=== PATIENT | female | born 1935 | race Caucasian/White ===

== ENCOUNTER 2017-07-06 15:18 | Emergency (ER) | payer MEDICARE, BC ==
--- NOTE | 2017-07-06 15:39 | EDM.PDOC ---
ED HPI GENERAL MEDICAL PROBLEM - General Chief Complaint: Genitourinary Problem Stated Complaint: BLADDER INFECTION Time Seen by Provider: 07/06/17 15:25 Source of Information: Reports: Patient History Limitations: Reports: No Limitations - History of Present Illness INITIAL COMMENTS - FREE TEXT/NARRATIVE: 82 yo female with a pHx of frequent UTI's recently developed dysuria. She had some Bactrim DS left at home and took one dose this morning. Since then has developed gross hematuria. No fever or nausea. Called the clinic and was unable to get in. Here now out of concern. 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) - Related Data Allergies Allergy/AdvReac Type Severity Reaction Status Date / Time No Known Allergies Allergy Verified 10/27/15 21:45 Home Meds: Home Meds Gemfibrozil [Gemfibrozil] 600 mg PO DAILY 10/27/15 [History] Lisinopril/Hydrochlorothiazide [Lisinopril-Hctz 10-12.5 mg Tab] 1 tab PO DAILY 10/27/15 [History] Lovastatin [Lovastatin] 40 mg PO DAILY 10/27/15 [History] Omeprazole [Omeprazole] 20 mg PO DAILY 10/27/15 [History] Social & Family History - Tobacco Use Smoking Status *Q: Unknown Ever Smoked - Recreational Drug Use Recreational Drug Use: No ED ROS GENERAL - Review of Systems Review Of Systems: See Below Constitutional: Reports: No Symptoms GI/Abdominal: Reports: No Symptoms : Reports: Dysuria, Hematuria Musculoskeletal: Reports: No Symptoms Skin: Reports: No Symptoms ED EXAM, RENAL/ - Physical Exam Exam: See Below Exam Limited By: No Limitations General Appearance: Alert, WD/WN, No Apparent Distress GI/Abdominal: Normal Bowel Sounds, Soft, Non-Tender, No Distention Back Exam: No: CVA Tenderness (R), CVA Tenderness (L) Extremities: Normal Inspection, Normal Range of Motion, Non-Tender, No Pedal Edema Neurological: Alert, Oriented, CN II-XII Intact, Normal Cognition Psychiatric: Normal Affect, Normal Mood Skin Exam: Warm, Dry, Intact, Normal Color, No Rash Departure - Departure Time of Disposition: 15:39 Disposition: Home, Self-Care 01 Condition: Good Clinical Impression: Hemorrhagic cystitis - Discharge Information Referrals: Gilberto Pike MD [Primary Care Provider] - Care Plan Goals: Drink ample fluids. Stay on your current ATB. Recheck in the clinic before the weekend. Return for fever.
[2017-07-06 15:46] VITALS: BP 170/82
== END 2017-07-06 16:00 | disposition home or self-care (01) ==
LOC: FB.ED 15:18
DX: N30.91 Cystitis, unspecified with hematuria (principal); Z79.899 Other long term (current) drug therapy
CPT/HCPCS: 99282

== ENCOUNTER 2017-11-23 12:43 | Emergency (ER) | payer MEDICARE, BC ==
[2017-11-23] MEDS ORDERED: Sulfamethoxazole/Trimethoprim 800-160 MG Tab PO ONE (14:01)
[2017-11-23 14:24] VITALS: BP 147/64
--- NOTE | 2017-11-23 20:47 | ER ---
DATE SEEN: 11/23/2017 TIME SEEN: Noon. CHIEF COMPLAINT: Pelvic pain. HISTORY OF PRESENT ILLNESS: An 82-year-old female with pelvic pain for 2 days, associated with urgency of urination. No burning, but she does have some frequency. She is concerned about a urinary tract infection. REVIEW OF SYSTEMS: No GI symptoms. No fever. MEDICATIONS: Reviewed. ALLERGIES: No known allergies. PHYSICAL EXAMINATION: VITAL SIGNS: Blood pressure and temperature within reference range. CHEST: Clear. ABDOMEN: Soft and benign. LABORATORY DATA: Positive for UTI. IMPRESSION: Acute cystitis. PLAN: Bactrim DS 1 tablet b.i.d. for 5 days. /[id number] HERACLIO/JANEY
== END 2017-11-23 14:23 | disposition home or self-care (01) ==
LOC: FB.ED 12:43
DX: N30.00 Acute cystitis without hematuria (principal)
CPT/HCPCS: 81001; 87086; 87088; 99283; A9270; 87186

== ENCOUNTER 2018-12-19 16:09 | Observation (INO) | payer MEDICARE, BC ==
[2018-12-19] MEDS ORDERED: Ketorolac 30 MG/ML SDV IM STA (16:18)
--- NOTE | 2018-12-19 16:25 | EDM.PDOC ---
ED HPI GENERAL MEDICAL PROBLEM - General Stated Complaint: RIGHT ANKLE PAIN Time Seen by Provider: 12/19/18 16:09 Source of Information: Reports: Patient, Family History Limitations: Reports: No Limitations - History of Present Illness INITIAL COMMENTS - FREE TEXT/NARRATIVE: 83 y.o.w.f with H/O HTN came to the ed by EMS due to sudden onset of pain and swelling of her right calf and ankle, unable to ambulate due to pain. Pt did not fall. No N/V/D, no dizziness, no other acute medical issues at this time. BP 194/80 Pulse 64 RR 14 Pulse ox 100% on RA Temp 36.8 Onset Date: 12/19/18 Onset Time: 15:00 Duration: Hour(s):, Constant Location: Reports: Lower Extremity, Right Quality: Reports: Ache, Dull, Pressure, Throbbing Severity: Moderate Improves with: Reports: None Worsens with: Reports: None Context: Reports: Other right lower leg Pain Score (Numeric/FACES): 9 - Related Data Allergies Allergy/AdvReac Type Severity Reaction Status Date / Time No Known Allergies Allergy Verified 12/19/18 16:54 Home Meds: Home Meds Gemfibrozil 600 mg PO DAILY 10/27/15 [History] Lovastatin 40 mg PO DAILY 10/27/15 [History] Omeprazole 20 mg PO DAILY 10/27/15 [History] amLODIPine [Norvasc] 5 mg PO DAILY 07/06/17 [History] Aspirin [Ecotrin] 81 mg PO DAILY 11/23/17 [History] Losartan [Cozaar] 25 mg PO DAILY 11/23/17 [History] Past Medical History HEENT History: Reports: Hard of Hearing, Impaired Vision Cardiovascular History: Reports: High Cholesterol, Hypertension Gastrointestinal History: Reports: GERD Genitourinary History: Reports: Urinary Incontinence, UTI, Recurrent 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: Musculoskeletal History: Reports: Arthritis - Infectious Disease History Infectious Disease History: Reports: Chicken Pox, Measles, Mumps - Past Surgical History HEENT Surgical History: Reports: Cataract Surgery Cardiovascular Surgical History: Reports: None Female Surgical History: Reports: None Social & Family History - Family History Family Medical History: Noncontributory - Caffeine Use Caffeine Use: Reports: Coffee ED ROS GENERAL - Review of Systems Review Of Systems: See Below Constitutional: Reports: No Symptoms HEENT: Reports: No Symptoms Respiratory: Reports: No Symptoms Cardiovascular: Reports: No Symptoms Endocrine: Reports: No Symptoms GI/Abdominal: Reports: No Symptoms : Reports: No Symptoms Musculoskeletal: Reports: Leg Pain (right leg pain) Skin: Reports: No Symptoms Neurological: Reports: No Symptoms Psychiatric: Reports: No Symptoms Hematologic/Lymphatic: Reports: No Symptoms Immunologic: Reports: No Symptoms ED EXAM,LOWER BACK PAIN/INJURY - Physical Exam Exam: See Below Exam Limited By: Physical Impairment (right leg pain) General Appearance: Alert, WD/WN, Moderate Distress, Cachetic Eye Exam: Bilateral Eye: Normal Inspection Ears: Normal External Exam, Normal Canal Nose: Normal Inspection, Normal Mucosa, No Blood Throat/Mouth: Normal Inspection, Normal Lips, Normal Voice, No Airway Compromise Head: Atraumatic, Normocephalic Neck: Normal Inspection, Supple, Non-Tender, Full Range of Motion Respiratory/Chest: No Respiratory Distress, Lungs Clear, Normal Breath Sounds, No Accessory Muscle Use, Chest Non-Tender Cardiovascular: Normal Peripheral Pulses, Regular Rate, Rhythm, No Edema, No Murmur, No Rub GI/Abdominal: Normal Bowel Sounds, Soft, Non-Tender, No Organomegaly, No Abnormal Bruit, No Mass, Pelvis Stable (Female) Exam: Deferred Rectal (Female) Exam: Deferred Back Exam: Normal Inspection, Full Range of Motion Extremities: Normal Inspection, Normal Range of Motion, Non-Tender, No Pedal Edema, Normal Capillary Refill Neurological: Alert, Normal Mood/Affect, Abnormal Gait (due to right lower leg pain) Psychiatric: Normal Affect, Normal Mood Skin Exam: Warm, Dry, Intact, Normal Color, No Rash Lymphatic: No Adenopathy Course - Vital Signs Text/Narrative:: 83 y.o.w.f with H/O HTN came to the ed by EMS due to sudden onset of pain and swelling of her right calf and ankle, unable to ambulate due to pain. Pt did not fall. No N/V/D, no dizziness, no other acute medical issues at this time. BP 194/80 Pulse 64 RR 14 Pulse ox 100% on RA Temp 36.8 PE: Cachectic 83 y.o.w.f with severe right lower extr. pain, unable to ambulate. Labs: CBC nl BMP pos for Na 132m Cl 98 BUN/CR ratio is elevated. Imaging: right T/P, Ankle: Ostearthritis, U/S doppler: Not available, scheduled for Thursday morning Impression: Right leg swelling. osteoarthritis DDX: Gout, DVT, varicosis Tx: Toradol: no improvement. Colchicine o.6 mg: Helped pain. Lovenox (1x5) SQ for presumed DVT. Clonidine 6.16 pm Consultation: Dr. Contreras, Hospitalist: Accepted admission for obs Plan: Admit for obs, Doppler US scheduled for AM Last Recorded V/S: Last Vital Signs Temp 36.8 C 12/20/18 00:00 Pulse 56 L 12/20/18 00:00 Resp 16 12/20/18 00:00 BP 110/59 L 12/20/18 00:00 Pulse Ox 97 12/20/18 00:00 - Orders/Labs/Meds Orders: Active Orders 24 hr Category Date Time Status Ankle Min 3V Rt [CR] Stat Exams 12/19/18 16:41 Taken Tibia Fibula Rt [CR] Stat Exams 12/19/18 16:41 Taken VL Duplex Lwr Ext Veins Ltd Rt [US] Stat Exams 12/19/18 16:19 Ordered Labs: Laboratory Tests 12/19/18 12/19/18 12/19/18 Range/Units 16:30 16:30 16:30 WBC 6.0 (4.5-12.0) X10-3/uL RBC 4.17 (3.23-5.20) x10(6)uL Hgb 13.1 (11.5-15.5) g/dL Hct 37.7 (30.0-51.3) % MCV 90.2 (80-96) fL MCH 31.4 (27.7-33.6) pg MCHC 34.8 (32.2-35.4) g/dL RDW 12.2 (11.5-15.5) % Plt Count 244 (125-369) X10(3)uL MPV 7.6 (7.4-10.4) fL Neut % (Auto) 72.8 (46-82) % Lymph % (Auto) 20.1 (13-37) % [place] % (Auto) 5.7 (4-12) % Eos % (Auto) 1 (1.0-5.0) % Baso % (Auto) 0 (0-2) % Neut # (Auto) 4.4 (1.6-8.3) # Lymph # (Auto) 1.2 (0.6-5.0) # [place] # (Auto) 0.3 (0.0-1.3) # Eos # (Auto) 0.1 (0.0-0.8) # Baso # (Auto) 0.0 (0.0-0.2) # PT 9.8 (8.7-11.1) INR 1.01 (0.89-1.13) Sodium (135-145) mmol/L Potassium (3.5-5.3) mmol/L Chloride (100-110) mmol/L Carbon Dioxide (21-32) mmol/L BUN (7-18) mg/dL Creatinine (0.55-1.02) mg/dL Est Cr Clr Drug Dosing Estimated GFR (MDRD) (>60) BUN/Creatinine Ratio (9-20) Glucose (80-116) mg/dL Uric Acid 3.4 L (3.5-7.2) mg/dL Calcium (8.6-10.2) mg/dL Urine Color (YELLOW) Urine Appearance (CLEAR) Urine pH (5.0-6.5) Ur Specific [place] (1.010-1.025) Urine Protein (NEGATIVE) mg/dL Urine Glucose (UA) (NEGATIVE) mg/dL Urine Ketones (NEGATIVE) mg/dL Urine Occult Blood (NEGATIVE) Urine Nitrite (NEGATIVE) Urine Bilirubin (NEGATIVE) Urine Urobilinogen (NEGATIVE) mg/dL Ur Leukocyte Esterase (NEGATIVE) Urine RBC (0) Urine WBC (0) Ur Squamous Epith Cells (NS,R,O) Urine Bacteria (NS) 12/19/18 12/19/18 Range/Units 16:30 18:09 WBC (4.5-12.0) X10-3/uL RBC (3.23-5.20) x10(6)uL Hgb (11.5-15.5) g/dL Hct (30.0-51.3) % MCV (80-96) fL MCH (27.7-33.6) pg MCHC (32.2-35.4) g/dL RDW (11.5-15.5) % Plt Count (125-369) X10(3)uL MPV (7.4-10.4) fL Neut % (Auto) (46-82) % Lymph % (Auto) (13-37) % [place] % (Auto) (4-12) % Eos % (Auto) (1.0-5.0) % Baso % (Auto) (0-2) % Neut # (Auto) (1.6-8.3) # Lymph # (Auto) (0.6-5.0) # [place] # (Auto) (0.0-1.3) # Eos # (Auto) (0.0-0.8) # Baso # (Auto) (0.0-0.2) # PT (8.7-11.1) INR (0.89-1.13) Sodium 133 L (135-145) mmol/L Potassium 4.0 (3.5-5.3) mmol/L Chloride 98 L (100-110) mmol/L Carbon Dioxide 26 (21-32) mmol/L BUN 15 (7-18) mg/dL Creatinine 0.7 (0.55-1.02) mg/dL Est Cr Clr Drug Dosing TNP Estimated GFR (MDRD) > 60 (>60) BUN/Creatinine Ratio 21.4 H (9-20) Glucose 134 H (80-116) mg/dL Uric Acid (3.5-7.2) mg/dL Calcium 9.2 (8.6-10.2) mg/dL Urine Color Yellow (YELLOW) Urine Appearance Clear (CLEAR) Urine pH 6.0 (5.0-6.5) Ur Specific [place] 1.015 (1.010-1.025) Urine Protein Negative (NEGATIVE) mg/dL Urine Glucose (UA) Normal (NEGATIVE) mg/dL Urine Ketones Negative (NEGATIVE) mg/dL Urine Occult Blood Trace (NEGATIVE) Urine Nitrite Negative (NEGATIVE) Urine Bilirubin Negative (NEGATIVE) Urine Urobilinogen Normal (NEGATIVE) mg/dL Ur Leukocyte Esterase Negative (NEGATIVE) Urine RBC 0-5 (0) Urine WBC 0-5 (0) Ur Squamous Epith Cells Few H (NS,R,O) Urine Bacteria Few H (NS) Meds: Medications Discontinued Medications Generic Name Dose Route Start Last Admin Trade Name Freq PRN Reason Stop Dose Admin Clonidine HCl 0.1 mg 12/19/18 19:16 12/19/18 19:29 Catapres PO 12/19/18 19:17 0.1 mg ONETIME ONE Administration Colchicine 0.6 mg 12/19/18 17:59 12/19/18 19:45 Colcrys PO 12/19/18 18:00 0.6 mg ONETIME ONE Administration Enoxaparin Sodium 50 mg 12/19/18 18:41 12/19/18 19:04 Lovenox SUBCUT 12/19/18 18:42 Not Given ONETIME STA Enoxaparin Sodium 80 mg 12/19/18 18:59 12/19/18 19:09 Lovenox SUBCUT 12/19/18 19:00 80 mg ONETIME STA Administration Ketorolac Tromethamine 30 mg 12/19/18 16:18 12/19/18 16:48 Toradol IM 12/19/18 16:19 30 mg ONETIME STA Administration Departure - Departure Time of Disposition: 18:00 Disposition: Refer to Observation Condition: Fair Clinical Impression: Unable to ambulate - Discharge Information - My Orders Last 24 Hours: My Active Orders 12/19/18 16:19 VL Duplex Lwr Ext Veins Ltd Rt [US] Stat 12/19/18 16:41 Ankle Min 3V Rt [CR] Stat Tibia Fibula Rt [CR] Stat - Assessment/Plan Last 24 Hours: My Active Orders 12/19/18 16:19 VL Duplex Lwr Ext Veins Ltd Rt [US] Stat 12/19/18 16:41 Ankle Min 3V Rt [CR] Stat Tibia Fibula Rt [CR] Stat
[2018-12-19] MEDS ORDERED: Colchicine 0.6 MG Tab PO ONE (17:59)
[2018-12-19] MEDS ORDERED: Enoxaparin 40 MG/0.4 ML Syringe SUBCUT STA (18:41)
[2018-12-19] MEDS ORDERED: Enoxaparin 80 MG/0.8 ML Syringe SUBCUT STA (18:59)
[2018-12-19] MEDS ORDERED: cloNIDine 0.1 MG Tab PO ONE (19:16)
--- NOTE | 2018-12-20 08:50 | PCM.HP ---
H&P History of Present Illness - General Date of Service: 12/20/18 Admit Problem/Dx: Admission Diagnosis/Problem Admission Diagnosis/Problem Unable to walk Source of Information: Patient History Limitations: Reports: No Limitations - History of Present Illness Initial Comments - Free Text/Narative: Name was admitted with sudden onset of right ankle pain without trauma. Associated swelling but no redness fever or chills. Previously healthy with exception of prediabetes and hypertension. She was unable to ambulate and was admitted for pain control. right lower leg Pain Score (Numeric/FACES): 9 - Related Data Allergies/Adverse Reactions: Allergies Allergy/AdvReac Type Severity Reaction Status Date / Time No Known Allergies Allergy Verified 12/19/18 16:54 Home Medications: Home Meds Gemfibrozil 600 mg PO DAILY 10/27/15 [History] Lovastatin 40 mg PO DAILY 10/27/15 [History] Omeprazole 20 mg PO DAILY 10/27/15 [History] amLODIPine [Norvasc] 5 mg PO DAILY 07/06/17 [History] Aspirin [Ecotrin] 81 mg PO DAILY 11/23/17 [History] Losartan [Cozaar] 25 mg PO DAILY 11/23/17 [History] Past Medical History HEENT History: Reports: Hard of Hearing, Impaired Vision Cardiovascular History: Reports: High Cholesterol, Hypertension Gastrointestinal History: Reports: GERD Genitourinary History: Reports: Urinary Incontinence, UTI, Recurrent [employer]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 - Infectious Disease History Infectious Disease History: Reports: Chicken Pox, Measles, Mumps - Past Surgical History HEENT Surgical History: Reports: Cataract Surgery Cardiovascular Surgical History: Reports: None Female Surgical History: Reports: None Social & Family History - Family History Family Medical History: Noncontributory - Tobacco Use Smoking Status *Q: Former Smoker Years of Tobacco use: 2 Packs/Tins Daily: 0.4 Used Tobacco, but Quit: No Month/Year Tobacco Last Used: 50 years ago Second Hand Smoke Exposure: No - Caffeine Use Caffeine Use: Reports: Coffee - Recreational Drug Use Recreational Drug Use: No H&P Review of Systems - Review of Systems: Review Of Systems: ROS reveals no pertinent complaints other than HPI. Exam - Exam Exam: See Below - Vital Signs Vital Signs: Last Vital Signs Temp 98.8 F 12/20/18 04:50 Pulse 49 L 12/20/18 04:50 Resp 16 12/20/18 04:50 BP 115/60 12/20/18 04:50 Pulse Ox 98 12/20/18 04:50 Weight: 51.256 kg - Exam General: Alert, Oriented, 4 HEENT: PERRLA, Hearing Intact, Mucosa Moist & [place], Nares Patent, Normal Nasal Septum, Posterior Pharynx Clear, Conjunctiva Clear, EOMI, EACs Clear, TMs Clear Neck: Supple, Trachea Midline, 2 Lungs: Clear to Auscultation, Normal Respiratory Effort Cardiovascular: Regular Rate, Regular Rhythm GI/Abdominal Exam: Normal Bowel Sounds, Soft, Non-Tender, No Organomegaly, No Distention, No Abnormal Bruit, No Mass, Pelvis Stable (Female) Exam: Deferred Rectal (Female) Exam: Deferred Back Exam: Normal Inspection, Full Range of Motion, NT Extremities: Other (mild effusioon r ankle). No: Pedal Edema Skin: Warm, Dry, Intact Neurological: Cranial Nerves Intact, Reflexes Equal Bilateral Neuro Extensive - Mental Status: Alert, Oriented x3, Normal Mood/Affect, Normal Cognition Neuro Extensive - Motor, Sensory, Reflexes: CN II-XII Intact, Normal Gait, Normal Reflexes Psychiatric: Alert, Normal Affect, Normal Mood - Patient Data Lab Results Last 24 hrs: Laboratory Results - last 24 hr 12/19/18 12/19/18 12/19/18 Range/Units 16:30 16:30 16:30 WBC 6.0 (4.5-12.0) X10-3/uL RBC 4.17 (3.23-5.20) x10(6)uL Hgb 13.1 (11.5-15.5) g/dL Hct 37.7 (30.0-51.3) % MCV 90.2 (80-96) fL MCH 31.4 (27.7-33.6) pg MCHC 34.8 (32.2-35.4) g/dL RDW 12.2 (11.5-15.5) % Plt Count 244 (125-369) X10(3)uL MPV 7.6 (7.4-10.4) fL Neut % (Auto) 72.8 (46-82) % Lymph % (Auto) 20.1 (13-37) % [place] % (Auto) 5.7 (4-12) % Eos % (Auto) 1 (1.0-5.0) % Baso % (Auto) 0 (0-2) % Neut # (Auto) 4.4 (1.6-8.3) # Lymph # (Auto) 1.2 (0.6-5.0) # [place] # (Auto) 0.3 (0.0-1.3) # Eos # (Auto) 0.1 (0.0-0.8) # Baso # (Auto) 0.0 (0.0-0.2) # PT 9.8 (8.7-11.1) INR 1.01 (0.89-1.13) D-Dimer, Quantitative (0.0-0.59) mg/LFEU Sodium (135-145) mmol/L Potassium (3.5-5.3) mmol/L Chloride (100-110) mmol/L Carbon Dioxide (21-32) mmol/L BUN (7-18) mg/dL Creatinine (0.55-1.02) mg/dL Est Cr Clr Drug Dosing Estimated GFR (MDRD) (>60) BUN/Creatinine Ratio (9-20) Glucose (80-116) mg/dL Uric Acid 3.4 L (3.5-7.2) mg/dL Calcium (8.6-10.2) mg/dL Urine Color (YELLOW) Urine Appearance (CLEAR) Urine pH (5.0-6.5) Ur Specific [place] (1.010-1.025) Urine Protein (NEGATIVE) mg/dL Urine Glucose (UA) (NEGATIVE) mg/dL Urine Ketones (NEGATIVE) mg/dL Urine Occult Blood (NEGATIVE) Urine Nitrite (NEGATIVE) Urine Bilirubin (NEGATIVE) Urine Urobilinogen (NEGATIVE) mg/dL Ur Leukocyte Esterase (NEGATIVE) Urine RBC (0) Urine WBC (0) Ur Squamous Epith Cells (NS,R,O) Urine Bacteria (NS) 12/19/18 12/19/18 12/19/18 Range/Units 16:30 16:30 18:09 WBC (4.5-12.0) X10-3/uL RBC (3.23-5.20) x10(6)uL Hgb (11.5-15.5) g/dL Hct (30.0-51.3) % MCV (80-96) fL MCH (27.7-33.6) pg MCHC (32.2-35.4) g/dL RDW (11.5-15.5) % Plt Count (125-369) X10(3)uL MPV (7.4-10.4) fL Neut % (Auto) (46-82) % Lymph % (Auto) (13-37) % [place] % (Auto) (4-12) % Eos % (Auto) (1.0-5.0) % Baso % (Auto) (0-2) % Neut # (Auto) (1.6-8.3) # Lymph # (Auto) (0.6-5.0) # [place] # (Auto) (0.0-1.3) # Eos # (Auto) (0.0-0.8) # Baso # (Auto) (0.0-0.2) # PT (8.7-11.1) INR (0.89-1.13) D-Dimer, Quantitative 1.21 H (0.0-0.59) mg/LFEU Sodium 133 L (135-145) mmol/L Potassium 4.0 (3.5-5.3) mmol/L Chloride 98 L (100-110) mmol/L Carbon Dioxide 26 (21-32) mmol/L BUN 15 (7-18) mg/dL Creatinine 0.7 (0.55-1.02) mg/dL Est Cr Clr Drug Dosing TNP Estimated GFR (MDRD) > 60 (>60) BUN/Creatinine Ratio 21.4 H (9-20) Glucose 134 H (80-116) mg/dL Uric Acid (3.5-7.2) mg/dL Calcium 9.2 (8.6-10.2) mg/dL Urine Color Yellow (YELLOW) Urine Appearance Clear (CLEAR) Urine pH 6.0 (5.0-6.5) Ur Specific [place] 1.015 (1.010-1.025) Urine Protein Negative (NEGATIVE) mg/dL Urine Glucose (UA) Normal (NEGATIVE) mg/dL Urine Ketones Negative (NEGATIVE) mg/dL Urine Occult Blood Trace (NEGATIVE) Urine Nitrite Negative (NEGATIVE) Urine Bilirubin Negative (NEGATIVE) Urine Urobilinogen Normal (NEGATIVE) mg/dL Ur Leukocyte Esterase Negative (NEGATIVE) Urine RBC 0-5 (0) Urine WBC 0-5 (0) Ur Squamous Epith Cells Few H (NS,R,O) Urine Bacteria Few H (NS) Result Diagrams: 12/19/18 16:30 12/19/18 16:30 - Problem List (1) Gout SNOMED Code(s): 56427685 ICD Code: M10.9 - GOUT, UNSPECIFIED Status: Acute Current Visit: Yes Qualifiers: Gout site: ankle Gout etiology: idiopathic Chronicity: acute Laterality : right Qualified Code(s): M10.071 - Idiopathic gout, right ankle and foot Problem List Initiated/Reviewed/Updated: Yes Orders Last 24hrs: Active Orders 24 hr Category Date Time Status Patient Status [ADT] Routine ADT 12/19/18 18:45 Active Oxygen Therapy [RC] PRN Care 12/19/18 18:45 Active Up With Assistance [RC] ASDIRECTED Care 12/19/18 18:45 Active VTE/DVT Education [RC] Per Unit Routine Care 12/19/18 18:45 Active Vital Signs [RC] 00,04,08,12,16,20 Care 12/19/18 18:45 Active Ankle Min 3V Rt [CR] Stat Exams 12/19/18 16:41 Taken Tibia Fibula Rt [CR] Stat Exams 12/19/18 16:41 Taken VL Duplex Lwr Ext Veins Ltd Rt [US] Stat Exams 12/20/18 07:17 Ordered Resuscitation Status Routine Resus Stat 12/19/18 18:45 Ordered Assessment/Plan Comment:: She has improved markedly on Cochicine. I will discharge him on indomethacin for 5 days, and follow-up when necessary. Information should be given for comfort. I cancelled the FULL DVT SINCE I SEE NO INDICATION AT THIS TIME.
[2018-12-20 10:46] VITALS: BP 126/65
== END 2018-12-20 11:00 | disposition home or self-care (01) ==
LOC: FB.ED 16:09 → FB.MS 18:45
PROVIDERS: ADMIT Family Medicine; ATTEND Family Medicine
DX: M10.071 Idiopathic gout, right ankle and foot (principal); I10 Essential (primary) hypertension; K21.9 Gastro-esophageal reflux disease without esophagitis; Z87.891 Personal history of nicotine dependence; Z79.82 Long term (current) use of aspirin; Z79.899 Other long term (current) drug therapy
CPT/HCPCS: 36415; 73590; 73610; 80048; 81001; 84550; 85025; 85379; 85610; 96372; 99284; A9270; J1650; J1885; G0378